=== PATIENT | male | born 1985 | race Caucasian/White ===

== ENCOUNTER 2023-05-15 18:53 | Emergency (ER) | payer OTHER, SELFPAY ==
--- NOTE | 2023-05-15 18:25 | ECG_ITS ---
[facility] Test Date: 2023-05-15 Pat Name: Nic Boyd Department: Room: Gender: Male Inventory Representative: : 1985 Requested By: Beau Adkins Order Number: [id number] Lito MD: Lalo Burciaga M.D. Measurements Intervals [place] Rate: 74 P: 30 SD: 160 QRS: 70 QRSD: 97 T: 43 QT: 401 QTc: 446 Interpretive Statements SINUS RHYTHM NONSPECIFIC T-WAVE ABNORMALITY No previous ECG available for comparison Electronically Signed On 05-16-2023 14:19:10 CDT by Lalo Burciaga M.D. [id number]
[2023-05-15 18:56] VITALS: BP 153/76; PULSE 84; RESP 22; TEMP 36.6; O2SAT 93; BMI 32.5
--- NOTE | 2023-05-15 18:57 | XRR_ITS ---
PROCEDURE INFORMATION: Exam: XR Chest Exam date and time: 05/15/2023 7:03 PM Age: 37 years old Clinical indication: Right-sided and left-sided; Patient HX: SOB; Bilateral rib; Pain; Pleurisy; Bronchitis TECHNIQUE: Imaging protocol: Radiologic exam of the chest. Views: 1 view. COMPARISON: No relevant prior studies available. FINDINGS: Lungs: Unremarkable. No consolidation. Pleural spaces: Unremarkable. No pleural effusion. No pneumothorax. Heart/Mediastinum: Unremarkable. No cardiomegaly. Bones/joints: Unremarkable. XR/XR chest 1V portable [id number] IMPRESSION: No acute findings.
[2023-05-15 19:25] LABS: Basophils % 0.4 %; Eosinophils # 0.1 10^3/uL (0.0-0.8); Eosinophils % 1.3 %; Hematocrit 45.9 % (37-53); Lymphocytes # 2.1 10^3/uL (0.8-4.8); Lymphocytes % 29.5 %; Mean Corpuscular HGB Conc 33.6 g/dL (30-55); Mean Corpuscular Hemoglobin 30.4 pg (27-33); Mean Corpuscular Volume 90.5 fl (82-101); Mean Platelet Volume 9.2 fL (7.4-10.4); Monocytes # 0.3 10^3/uL (0.2-0.9); Monocytes % 4.2 %; Neutrophils # 4.46 10^3/uL (1.8-7.7); Neutrophils % 64.3 %; Nucleated Red Blood Cells % 0 %; Platelet Count 218 10^3/cmm (157-399); Red Blood Count 5.07 10^6/uL (3.85-5.65); Red Cell Distribution Width 12.5 % (12.1-15.1); White Blood Count 6.94 10^3/uL (3.29-11.43)
[2023-05-15 19:49] LABS: Troponin(5th) Baseline 7 ng/L (0-15)
[2023-05-15 19:53] LABS: Alanine Aminotransferase 41 U/L (0-41); Albumin Level 4.3 g/dL (3.5-5.2); Alkaline Phosphatase 95 U/L (40-130); Anion Gap 16.1 (5-19); Aspartate Amino Transferase 25 U/L (0-40); Blood Urea Nitrogen 13 mg/dL (6-20); Calcium 8.7 mg/dL (8.5-10.5); Carbon Dioxide 23 mmol/L (22-29); Chloride 106 mmol/L (98-107); Creatinine Clr Calc Pharmacy 167.4737; Globulin 2.4 g/dL (1.3-4.6); Glucose 102 mg/dL (65-115); NT Pro B Type Natriuretic Pept < 36 pg/mL (0-125); Osmolality Calculated 294 mOsm/kg (285-295); Potassium 3.1 mmol/L (3.5-5.1); Sodium 142 mmol/L (136-145); Total Bilirubin 0.2 mg/dL (0.15-1.2); Total Protein 6.7 g/dL (6.6-8.7)
--- NOTE | 2023-05-15 20:19 | ED_ITS ---
HPI - SOB/Dyspnea 2 General: Chief Complaint: Shortness of Breath/Dyspnea Stated Complaint: shortness of breath Time Seen by Provider: 05/15/23 18:56 History of Present Illness: HPI Narrative: 37-year-old male presents to the emergen cy department via EMS personnel stating that he feels like he is having shortness of breath. Patient was diagnosed 2 days ago with influenza B. Patient is alert and oriented in no acute distress. The EMS personnel did provide the patient 2 DuoNeb breathing treatments. Patient's oxygen saturation per EMS has been in the mid to low 90s. He does not appear to have any acute respiratory distress at present. Associated symptoms: Reports fever(s) Review of Systems 2 General: Reports: 10 or more systems reviewed and unremarkable except in HPI and below Const: Reports: fever(s), body aches, fatigue and malaise Resp: Reports: dyspnea and non-productive cough Physical Exam 2 Const: COMMON NORMALS: no acute distress, patient oriented x3 and alert HENMT: COMMON NORMALS: normocephalic, Normal external nose present and moist oral mucous membranes HEAD & SCALP: normocephalic NOSE: Normal external nose present Eye: COMMON NORMALS: Equal, round and reactive pupils present and EOMs intact bilaterally PUPIL: Yes Equal, round and reactive pupils present Neck/C-Spine: COMMON NORMALS: full ROM, supple and no meningeal signs Resp: AUSCULTATION: wheezes expiratory wheezes and scattered wheezes Cardio: COMMON NORMALS: regular rate, regular rhythm, S1 normal heart sound present, S2 normal heart sound present and Peripheral pulses 2+ throughout R ATE: regular rate RHYTHM: regular rhythm HEART SOUNDS: S1 normal heart sound present and S2 normal heart sound present PERIPHERAL PULSES: Peripheral pulses 2+ throughout GI: COMMON NORMALS: Normal to inspection, nondistended, normoactive bowel sounds present, Soft to palpation and non-tender PALPATION: Yes Soft to palpation Back/Pelvis: COMMON NORMALS: thoracic and lumbar spine normal to inspection and thoraco-lumbar ROM normal Extremity: COMMON NORMALS: full ROM, capillary refill normal and no pedal edema Neuro: COMMON NORMALS: patient oriented x3 SENSORIUM/ORIENTATION: Yes alert MENINGEAL SIGNS: Yes no meningeal signs Psych: COMMON NORMALS: mental status grossly normal, Normal thought process present and cooperative THOUGHT PROCESS: Normal thought process present Skin: COMMON NORMALS: no rashes or lesions noted GENERAL SKIN EXAM: no rashes or lesions noted Course 2 Vital Signs: Vital signs: Vital Signs Temperature 97.9 F 05/15/23 18:56 Pulse Rate 75 05/15/23 21:43 Respiratory Rate 16 05/15/23 21:43 Blood Pressure 153/76 05/15/23 20:48 Pulse Oximetry 95 05/15/23 21:43 Oxygen Delivery Me thod Room Air 05/15/23 21:43 MDM - SOB/Dyspnea Medical Decision Making Physical exam completed and documented I will obtain a CBC, CMP, cardiac enzymes and a chest x-ray. Given the positive finding of influenza B 2 days ago from his primary care provider I will provide him supportive care. Lab Data I reviewed the patient's lab results. 05/15/23 17:18 05/15/23 17:18 Labs/Radiology: Radiology Impressions Chest X-Ray 05/15/23 18:57 IMPRESSION: No acute findings. Laboratory Results WBC 6.94 10^3/uL (3.29-11.43) 05/15/23 17:18 RBC 5.07 10^6/uL (3.85-5.65) 05/15/23 17:18 Hgb 15.40 g/dL (11.27-16.99) 05/15/23 17:18 Hct 45.9 % (37-53) 05/15/23 17:18 MCV 90.5 fl (82-101) 05/15/23 17:18 MCH 30.4 pg (27-33) 05/15/23 17:18 MCHC 33.6 g/dL (30-55) 05/15/23 17:18 RDW 12.5 % (12.1-15.1) 05/15/23 17:18 Plt Count 218 10^3/cmm (157-399) 05/15/23 17:18 MPV 9.2 fL (7.4-10.4) 05/15/23 17:18 Neut % (Auto) 64.3 % 05/15/23 17:18 Lymph % (Auto) 29.5 % 05/15/23 17:18 [place] % (Auto) 4.2 % 05/15/23 17:18 Eos % (Auto) 1.3 % 05/15/23 17:18 Baso % (Auto) 0.4 % 05/15/23 17:18 Neut # (Auto) 4.46 10^3/uL (1.8-7.7) 05/15/23 17:18 Lymph # (Auto) 2.1 10^3/uL (0.8-4.8) 05/15/23 17:18 [place] # (Auto) 0.3 10^3/uL (0.2-0.9) 05/15/23 17:18 Eos # (Auto) 0.1 10^3/uL (0.0-0.8) 05/15/23 17:18 Baso # (Auto) 0.0 10^3/uL (0.0-0.1) 05/15/23 17:18 Nucleated RBC % (auto) 0 % 05/15/23 17:18 Nucleated RBCs # 0.0 /100WBC 05/15/23 17:18 Specimen Type Arterial 05/15/23 21:22 Sample Site Radial, left 05/15/23 21:22 ABG pH 7.49 (7.35-7.45) H 05/15/23 21:22 ABG pCO2 32.9 mmHg (35-45) L 05/15/23 21: ABG pO2 68.4 mmHg (80.0-100.0) L 05/15/23: ABG PO2/FiO2 Ratio 0 05/15/23 21: ABG HCO3 25.3 mmol/L (22-26) 05/15/23 21: ABG O2 Saturation 96.0 05/15/23 21:22 ABG Base Excess 2.5 mmol/L (-2.0-2.0) H 05/15/23 21:22 Tom Test Pos 05/15/23 21:22 A-a O2 Gradient 5.3 mmHg (5-10) 05/15/23 21:22 Hematocrit 44.5 % (42-52) 05/15/23 21:22 Hgb O2 Saturation 95.4 % (95-100) 05/15/23 21:22 Carboxyhemoglobin 0.3 %THgb (0.4-20.1) L 05/15/23 21:22 Methemoglobin 0.4 % (0.4-1.5) 05/15/23 21:22 Total Hemoglobin 14.5 g/dL (14-18) 05/15/23 21:22 Sodium 143.0 mmol/L (131-143) 05/15/23 21:22 Potassium 3.1 mmol/L (3.5-5.0) L 05/15/23 21:22 Glucose 95.0 mg/dL (70-115) 05/15/23 21:22 Ionized Calcium 1.2 mmol/L (1.1-1.4) 05/15/23 21:22 O2 Delivery Device Room air 05/15/23 21:22 FiO2 21.0 % 05/15/23 21:22 Flight Radio Operator ID Ed 05/15/23 21:22 Sodium 142 mmol/L (136-145) 05/15/23 17:18 Potassium 3.1 mmol/L (3.5-5.1) L 05/15/23 17:18 Chloride 106 mmol/L (98-107) 05/15/23 17:18 Carbon Dioxide 23 mmol/L (22-29) 05/15/23 17:18 Anion Gap 16.1 (5-19) 05/15/23 17:18 BUN 13 mg/dL (6-20) 05/15/23 17:18 Creatinine 0.9 mg/dL (0.7-1.2) 05/15/23 17:18 GFR Calculation 96.0 mL/min (90-130) 05/15/23 17:18 Glucose 102 mg/dL (65-115) 05/15/23 17:18 Calculated Osmolality 294 mOsm/kg (285-295) 05/15/23 17:18 Calcium 8.7 mg/dL (8.5-10.5) 05/15/23 17:18 Total Bilirubin 0.2 mg/dL (0.15-1.2) 05/15/23 17:18 AST 25 U/L (0-40) 05/15/23 17:18 ALT 41 U/L (0-41) 05/15/23 17:18 Alkaline Phosphatase 95 U/L (40-130) 05/15/23 17:18 Troponin T Baseline 7 ng/L (0-15) 05/15/23 17:18 Troponin T 120 Minute 6.67 ng/L (0-15) 05/15/23 20:49 Delta Troponin T -0.33 ABS# (0-10) L 05/15/23 20:49 NT-Pro-B Natriuret Pep < 36 pg/mL (0-125) 05/15/23 17:18 Total Protein 6.7 g/dL (6.6-8.7) 05/15/23 17:18 Albumin 4.3 g/dL (3.5-5.2) 05/15/23 17:18 Globulin 2.4 g/dL (1.3-4.6) 05/15/23 17:18 All radiology interpretation(s) finalized by discharge EKG Data EKG 1: Interpretation: Twelve-lead EKG obtained at 1825 reviewed at 1828 demonstrates normal sinus rhythm, ventricular rate 74 bpm, CT interval 160, QRS duration 97, QT 401, QTc [address] elevation or depression to demonstrate acute ischemia or infarction at present. Discharge Plan Discharge Patient Disposition: Home Clinical Impression: Influenza B, Acute hypokalemia Cough Qualifiers: Cough type: acute Qualified Code(s): R05.1 - Acute cough Condition: Stable Prescriptions: New albuterol sulfate 90 mcg/actuation HFA aerosol inhaler 2 inh inhalation Q6H PRN (Reason: shortness of breath or wheezing) Qty: 8.5 0RF benzonatate 200 mg capsule 200 mg PO TID Qty: 30 0RF Discharge Orders: Discharge ED (Routine); Ordered 05/15/23 Ordered By: Beau Adkins Discharge Diet: Usual diet Discharge Activity: Resume usual activity Patient Instructions: Opioid Safety, Pain Management Activity Restrictions/Additional Instructions: Activity Restrictions/Additional Instructions: Thank you for choosing [facility] for your healthcare needs today. Please realize that you were seen in the Emergency Department and that we are providing you with an emergency medical screening exam and this may not be a complete and all inclusive of all the testing and or medical work-up that you may need to determine your ailment or severity of your illness. It is very important that you follow-up as instructed with your Primary care provider or Specialist for additional evaluation and to discuss your medical treatment plan. Coding Level of Care Code ED Neuropsychology Director for [facility]
[2023-05-15] MEDS: methylPREDNISolone sod succ 125 mg/2 mL INJ 60 MG IVP (20:40)
[2023-05-15 20:48] VITALS: BP 153/76; PULSE 73; RESP 18; O2SAT 98
[2023-05-15] MEDS: ipratropium-albuterol 3 mL Neb 9 ML INHALATION (20:54)
[2023-05-15 20:55] VITALS: PULSE 82; RESP 16; O2SAT 95
[2023-05-15 21:32] LABS: ABG PCO2 32.9 mmHg (35-45); ABG PH Result 7.49 (7.35-7.45); Alveolar-Arterial Oxygen Gradi 5.3 mmHg (5-10); Arterial Blood Gas Hematocrit 44.5 % (42-52); Base Excess ABG 2.5 mmol/L (-2.0-2.0); Blood Gas Allen Test Pos; Blood Gas Operator Identificat ED; Blood Gas Sample Site Radial, left; Blood Gas Sample Type Arterial; Carboxyhemoglobin 0.3 %THgb (0.4-20.1); HCO3 ABG 25.3 mmol/L (22-26); HGB O2 Sat 95.4 % (95-100); Ionized Calcium Level - ABG 1.2 mmol/L (1.1-1.4); Methemoglobin 0.4 % (0.4-1.5); Oxygen Device ROOM AIR; PO2 ABG 68.4 mmHg (80.0-100.0); PO2 FiO2 Ratio Arterial Blood 0; Potassium Level - ABG 3.1 mmol/L (3.5-5.0); Total Hemoglobin 14.5 g/dL (14-18)
[2023-05-15 21:43] VITALS: PULSE 75; RESP 16; O2SAT 95
[2023-05-15 21:43] LABS: Troponin 5 2HR 6.67 ng/L (0-15); Troponin 5 2HR Delta -0.33 ABS# (0-10)
[2023-05-15 21:58] VITALS: BP 153/76; PULSE 75; RESP 16; TEMP 36.6; O2SAT 95
== END 2023-05-15 21:59 | disposition home or self-care (01) ==
PROVIDERS: Emergency Provider Internal Medicine
DX: J10.1 Influenza due to other identified influenza virus with other respiratory manifestations (principal); E87.6 Hypokalemia
CPT/HCPCS: 36415; 36600; 71045; 80051; 80053; 82330; 82805; 83880; 84484; 85025; 93005; 94640; 96374; 99285; J2930